=== PATIENT | female | born 1945 | race Caucasian/White ===

== ENCOUNTER 2018-09-29 10:03 | Outpatient (CLI) | payer MEDICARE ==
--- NOTE | 2018-09-29 10:51 | RAD ---
CHEST TWO VIEWS: 09/29/2018 HISTORY: Shortness of breath. COMPARISON: 07/12/2014 FINDINGS: A focal area of increased linear density is noted in the inferolateral aspect of the right upper lobe , unchanged when compared to the 2015 exam. Mild increased linear interstitial density and pulmonary hyperinflation suggest COPD in the proper clinical setting, stable. No pneumothorax, pleural fluid, focal consolidation, or alveolar edema. IMPRESSION: Stable two view examination of the chest. No acute findings. POS: OFF
== END 2018-09-29 10:04 | disposition home or self-care (01) ==
LOC: RAD 10:03
PROVIDERS: ATTEND Internal Medicine Critical Care Medicine
DX: R06.00 Dyspnea, unspecified (principal)
CPT/HCPCS: 71046